=== PATIENT | male | born 1980 | race Hispanic/Latino ===

== ENCOUNTER 2017-03-19 15:28 | Emergency (ER) | payer BC ==
[2017-03-19] MEDS ORDERED: Dexamethasone 4 mg/ml Vial ONE (17:18)
== END 2017-03-19 17:26 | disposition home or self-care (01) ==
LOC: ERS 15:28
DX: G89.29 Other chronic pain (principal); M54.5 Low back pain; E11.9 Type 2 diabetes mellitus without complications; F32.9 Major depressive disorder, single episode, unspecified; F41.9 Anxiety disorder, unspecified
CPT/HCPCS: 96372; J1100; J2270

== ENCOUNTER 2018-01-01 09:01 | Emergency (ER) | payer BC ==
[2018-01-01] MEDS ORDERED: Diazepam 5 MG TAB ONE (09:26)
[2018-01-01] MEDS ORDERED: HYDROcodone/Acetaminophen 5/325 mg Tablet ONE (09:26)
[2018-01-01] MEDS ORDERED: Naproxen 500 MG TAB ONE (09:26)
== END 2018-01-01 10:49 | disposition home or self-care (01) ==
LOC: ERS 09:01
DX: M54.5 Low back pain (principal); I10 Essential (primary) hypertension; E11.9 Type 2 diabetes mellitus without complications; F41.9 Anxiety disorder, unspecified; F32.9 Major depressive disorder, single episode, unspecified; Z79.899 Other long term (current) drug therapy
CPT/HCPCS: 99283